=== PATIENT | male | born 1955 | race Caucasian/White ===

== ENCOUNTER 2021-11-26 07:52 | Day surgery (SDC) | payer MEDICARE ==
[2021-11-26] MEDS ORDERED: Sodium Chloride 0.9% 1,000 ML IV SCH (08:30)
[2021-11-26 08:51] LABS: CORONAVIRUS COVID-19 NAA NEGATIVE (NEGATIVE)
[2021-11-26] MEDS ORDERED: Propofol 200 MG/20 ML SDV ONE (09:18)
[2021-11-26] MEDS ORDERED: fentaNYL 100 MCG/2 ML SDV ONE (09:19)
[2021-11-26] MEDS ORDERED: Midazolam 1 MG/ML 2 ML SDV ONE (09:19)
== END 2021-11-26 10:49 | disposition home or self-care (01) ==
LOC: JP.SDS 07:52
PROVIDERS: ATTEND Surgery
DX: Z12.11 Encounter for screening for malignant neoplasm of colon (principal); D12.4 Benign neoplasm of descending colon; Z01.812 Encounter for preprocedural laboratory examination; Z20.822 Contact with and (suspected) exposure to COVID-19
CPT/HCPCS: 0241U; 88305; J2250; J2704; J3010; J7030

== ENCOUNTER 2023-11-16 06:16 | Day surgery (SDC) | payer MEDICARE ==
[2023-11-16] MEDS: Acetaminophen 500 MG Tab PO ONE (06:37)
[2023-11-16] MEDS ORDERED: Lidocaine 1% 50 ML MDV ONE (06:58)
[2023-11-16] MEDS: Lactated Ringers 1,000 ML IV SCH (06:59)
[2023-11-16] MEDS ORDERED: fentaNYL 250 MCG/5 ML SDV ONE (07:21)
[2023-11-16] MEDS ORDERED: Dexamethasone 4 MG/ML SDV ONE (07:21)
[2023-11-16] MEDS ORDERED: Ondansetron 4 MG/2 ML SDV ONE (07:21)
[2023-11-16] MEDS ORDERED: Rocuronium 50 MG/5 ML Vial ONE (07:21)
[2023-11-16] MEDS ORDERED: Propofol 200 MG/20 ML SDV ONE (07:21)
[2023-11-16] MEDS ORDERED: Neostigmine Methylsulfate 10 MG/10 ML MDV ONE (07:21)
[2023-11-16] MEDS ORDERED: Glycopyrrolate 0.2 MG/ML 5 ML MDV ONE (07:21)
[2023-11-16] MEDS: ceFAZolin 2 GM in Premix Bag 1 BAG IV ONE (07:26)
[2023-11-16] MEDS ORDERED: ePHEDrine 50 MG/ML SDV ONE (08:08)
[2023-11-16] MEDS: Bupivacaine 0.5%/EPINEPHrine 1:200,000 50 ML MDV ONE (08:15)
[2023-11-16] MEDS ORDERED: Lactated Ringers 1,000 ML ONE (09:15)
[2023-11-16] MEDS: Acetaminophen/HYDROcodone 325-5 MG Tab PO PRN (11:14)
== END 2023-11-16 11:48 | disposition home or self-care (01) ==
LOC: JP.SDS 06:16
PROVIDERS: ATTEND Student in an Organized Health Care Education/Training Program
DX: K40.90 Unilateral inguinal hernia, without obstruction or gangrene, not specified as recurrent (principal)
CPT/HCPCS: 49505; A9270; C1781; J0690; J1100; J2405; J2704; J2710; J3010; J3490; J7120; J2001